=== PATIENT | female | born 1965 | race Two or more races ===

== ENCOUNTER 2019-09-08 14:50 | Emergency (ER) | payer SELFPAY ==
[~2019-09-08] VITALS: Ht 180.3 cm; Wt 81.2 kg
[2019-09-08] MEDS ORDERED: ASPirin 81 mg TAB PO ONE (15:15)
[2019-09-08 15:21] LABS: Basophils # (auto) 0.1 10 ^3/uL (0-0.2); Basophils % (auto) 0.7 % (0.0-2.0); Eosinophils # (auto) 0.1 10 ^3/uL (0-0.8); Eosinophils % (auto) 1.4 % (0.0-7.0); Hematocrit 43.8 % (36.0-46.0); Hemoglobin 14.8 g/dL (12.2-16.2); Lymphocytes # (auto) 2.6 10 ^3/uL (0.4-5.4); Lymphocytes % (auto) 33.7 % (10.0-50.0); Mean Corpuscular Hemoglobin 30.1 pg (28.0-32.0); Mean Corpuscular Hgb Conc. 33.9 g/dL (32.0-36.0); Mean Corpuscular Volume 88.8 fL (80.0-100.0); Monocytes # (auto) 0.5 10 ^3/uL (0-1.3); Monocytes % (auto) 6.7 % (0.0-12.0); Neutrophils # (auto) 4.4 10 ^3/uL (1.6-8.6); Neutrophils % (auto) 57.5 % (37.0-80.0); Nucleated Red Blood Cells % 0.2 %; Platelet Count (auto) 343 10^3/uL (140-450); Red Blood Cells 4.93 10^6/uL (4.0-5.20); Red Cell Distribution Width 13.1 % (11.8-14.3); White Blood Cell 7.7 10^3/uL (4.4-10.8)
[2019-09-08 15:38] LABS: Albumin 3.9 g/dL (3.4-5.0); Anion Gap 6 (5-15); Blood Urea Nitrogen 11 mg/dL (7-18); Calcium 8.7 mg/dL (8.5-10.1); Carbon Dioxide 26 mmol/L (21-32); Chloride 108 mmol/L (98-107); Glucose 96 mg/dL (74-106); Magnesium 2.7 mg/dL (1.6-2.6); Potassium 3.6 mmol/L (3.5-5.1); Sodium 140 mmol/L (136-145)
[2019-09-08 15:47] LABS: Alanine Aminotransferase 37 U/L (13-56); Alkaline Phosphatase 102 U/L (45-117); Aspartate Aminotransferase 18 U/L (15-37); BUN/Creatinine Ratio 13.8; Bilirubin, Total 0.5 mg/dL (0.2-1.0); GFR African American 96 mL/min; GFR Non-African American 80 mL/min; Total Protein 7.9 g/dL (6.4-8.2)
[2019-09-08 16:42] VITALS: BP 150/70
== END 2019-09-08 16:44 | disposition home or self-care (01) ==
LOC: ER 14:50
DX: R07.89 Other chest pain (principal); I10 Essential (primary) hypertension
CPT/HCPCS: 36415; 71046; 80053; 83735; 84484; 85025; 93005

== ENCOUNTER 2024-08-21 09:07 | Emergency (ER) | payer MEDICAID, OTHER ==
[~2024-08-21] VITALS: Ht 175.3 cm; Wt 97.0 kg
[2024-08-21 09:30] LABS: Urine Bacteria None Seen /hpf (None Seen)
--- NOTE | 2024-08-21 09:33 | ED.PDOC ---
HPI Comments 59 year old female presents to the ED with a chief complaint of chest pain onset 3 days. Patient states she has been experiencing chest pain, radiates to back, epigastric region, described as a burning sensation. Patient went to urgent care for symptoms, was sent to ED. PMHx HTN, HLD. Denies shortness of breath, dizziness, nausea, vomiting, diarrhea, headache, dysuria, hematuria. No other symptoms or modifying factors present at this time. Chief Complaint: Chest Pain Time Seen by MD: 09:13 Reviewed Notes: Medications, Allergies Allergies: Coded Allergies: NO KNOWN ALLERGIES (Unverified , 09/08/19) Information Source: Patient Mode of Arrival: Ambulatory Severity: Moderate Timing: Days Duration: Since onset Prehospital treatment: None Location: Chest (L) Radiation: Back Quality: Burning Onset: At Rest Cardiac Risk Factors: Hyperlipidemia, HTN PE Risk Factors: None History of: None Associated Signs and Symptoms: Abdominal Pain, Back Pain Past Medical History PAST MEDICAL HISTORY: High Lipids, HTN Surgical History (Other): cardiac ablasion, intesine surgery 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, Ovarian Cysts Family History Family History: Reviewed,noncontributory to illness, No family hx of Cancer Social History Smoker: Non-Smoker Alcohol: Denies ETOH Use Drugs: Denies Drug Use Lives In: Home Constitutional: denies: chills, diaphoresis, fatigue, fever, malaise, sweats, weakness, others EENTM: denies: blurred vision, double vision, ear bleeding, ear discharge, ear drainage, ear pain, ear ringing, eye pain, eye redness, hearing loss, mouth pain, mouth swelling, nasal discharge, nose bleeding, nose congestion, nose pain, photophobia, tearing, throat pain, throat swelling, voice changes, others Respiratory: denies: cough, hemoptysis, orthopnea, SOB at rest, shortness of breath, SOB with excertion, stridor, wheezing, others Cardiovascular: reports: chest pain; denies: dizzy spells, diaphoresis, Dyspnea on exertion, edema, irregular heart beat, left arm pain, lightheadedness, palpitations, PND, syncope, others Gastrointestinal: reports: abdominal pain; denies: abdomen distended, blood streaked bowels, constipated, diarrhea, dysphagia, difficulty swallowing, hematemesis, melena, nausea, poor appetite, poor fluid intake, rectal bleeding, rectal pain, vomiting, others Genitourinary: denies: abnormal vagina bleeding, burning, dyspareunia, dysuria, flank pain, frequency, hematuria, incontinence, pain, , vagina discharge, urgency, others Neurological: denies: dizziness, fainting, headache, left sided numbness, left sided weakness, numbness, paresthesia, pre-existing deficit, right sided numbness, right sided weakness, seizure, speech problems, tingling, tremors, weakness, others Musculoskeletal: reports: back pain; denies: gout, joint pain, joint swelling, muscle pain, muscle stiffness, neck pain, others Integumetry: denies: bruises, change in color, change in hair/nails, dryness, laceration, lesions, lumps, rash, wounds, others Allergic/Immunocompromised: denies: Difficulty Healing, Frequent Infections, Hives, Itching, others Hematologic/Lymphatic: denies: anemia, blood clots, easy bleeding, easy bruising, swollen glands, others Endocrine: denies: excessive hunger, excessive sweating, excessive thirst, excessive urination, flushing, intolerance to cold, intolerance to heat, unexplained weight gain, unexplained weight loss, others Psychiatric: denies: anxiety, bipolar disorder, depression, hopeless, panic disorder, schizophrenia, sleepless, suicidal, others All Other Systems: Reviewed and Negative Physical Exam General Appearance: Moderate Distress, Normal HEENT: Normal ENT Inspection, Pharynx Normal, TMs Normal Neck: Full Range of Motion, Non-Tender, Normal, Normal Inspection Respiratory: Chest Non-Tender, Lungs Clear, No Accessory Muscle Use, No Respiratory Distress, Normal Breath Sounds Cardiovascular: No Edema, No JVD, No Murmur, No Gallop, Normal Peripheral Pulses, Regular Rate/Rhythm Breast Exam: Deferred Gastrointestinal: No Organomegaly, Non Tender, No Pulsatile Mass, Normal Bowel Sounds, Soft Genitalia: Deferred Pelvic: Deferred Rectal: Deferred Extremities: No calf tenderness, Normal capillary refill, Normal inspection, Normal range of motion, Non-tender, No pedal edema Musculoskeletal : Apperance: Normal Neurologic: Alert, engine cleaner II-XII nml as Tested, No Motor Deficits, Normal Affect, Normal Mood, No Sensory Deficits Cerebellar Function: Normal Reflexes: Normal Skin: Dry, Normal Color, Warm Peripheral Pulses: 3+ Radial (R), 3+ Radial (L) Lymphatic: No Adenopathy EKG EKG : Pulse Rate (adult): 65 Cardiac Rhythm: NSR Was a procedure done? Was a procedure done?: No CP Differential Dx Differential Diagnosis: A-fib, A-Flutter, Angina, Anxiety / Panic Attack, Atrial Dysrhythmia, Electrolyte Disorder X-Ray, Labs, Meds, VS Vital Signs Date Time Temp Pulse Resp B/P (MAP) Pulse Ox O2 Delivery O2 Flow Rate FiO2 08/21/24 11:27 97.4 57 16 156/66 (96) 97 97.4 08/21/24 09:55 98.3 64 18 123/84 (97) 96 98.3 08/21/24 09:55 66 18 96 Room Air* 0 21 08/21/24 09:33 65 08/21/24 09:12 65 08/21/24 09:07 97.7 65 18 145/76 (99) 96 97.7 Lab Test 08/21/24 10:35 08/21/24 09:22 08/21/24 09:16 Range/Units Troponin I High Sensitivity < 3 L < 3 L </=34 ng/L Urine Color Light-yellow Yellow Urine Clarity Clear Clear Urine pH 7.5 5.0-9.0 Urine Specific Martin 1.021 1.001-1.035 Urine Protein Negative Negative Urine Ketones Negative Negative Urine Blood Trace H Negative /uL Urine Nitrite Negative Negative Urine Bilirubin Negative Negative Urine Urobilinogen Normal Negative mg/dL Urine Leukocyte Esterase Negative Negative /uL Urine RBC 7 0 - 4 /hpf Urine Microscopic WBC 1 0-5 /HPF Urine Squamous Epithelial Cells Few <5 /hpf Urine Bacteria None seen None Seen /hpf Urine Mucus Few None Seen Urine Glucose Normal Normal mg/dL Patient alert. Complaining of chest discomfort. EKG reviewed does not show any acute changes. Vitals stable. Answering questions. Ambulating. Not in distress. No sign of sepsis. No leg swelling. Reviewed her history. Explained to the patient. Continue cardiac monitoring. Was told to follow up with her primary care physician. Was told to come back if there is any problem. Time of 1ST Reevaluation: 09:43 Reevaluation 1ST: Unchanged Patient Education/Counseling: Diagnosis, Treatment, Prognosis Family Education/Counseling: No Family Present Departure 1 Departure Time of Disposition: 09:37 Impression: Primary Impression: Musculoskeletal chest pain Additional Impression: HTN (hypertension) Qualified Codes: I10 - Essential (primary) hypertension Disposition: 01 HOME / SELF CARE / HOMELESS Condition: Good Discharged With: Self Critical Care Note Critical Care Time?: No Stability Stability form required: No Heart Score Heart Score: Heart Score Response (Comments) Value History Slightly Suspicious 0 EKG Normal 0 Age 45-64 1 Risk Factors 1 or 2 risk factors 1 Troponin Normal limit 0 Total 2 I personally scribed for RONAK BELLO MD ([email or web address]) on 08/21/24 at 09:33. Electronically submitted by Lucy Hanson ([email or web address]). I personally scribed for RONAK BELLO MD ([email or web address]) on 08/21/24 at 11:45. Electronically submitted by Lucy Hanson ([email or web address]). RONAK BELLO MD August 21, 2024 09:33
[2024-08-21 09:40] LABS: Urine Blood TRACE /uL (Negative); Urine Clarity Clear (Clear); Urine Color Light-Yellow (Yellow); Urine Mucus FEW (None Seen); Urine Protein, UAD Negative (Negative); Urine Specific Gravity 1.021 (1.001-1.035); Urine Squamous Epithelial Cell FEW /hpf (<5); Urine Urobilinogen Normal (Negative); Urine WBC 1 /HPF (0-5); Urine pH 7.5 (5.0-9.0)
[2024-08-21 09:55] VITALS: PULSE 66; RESP 18; O2SAT 96
[2024-08-21 11:27] VITALS: BP 156/66; PULSE 57; RESP 16; TEMP 97.4; O2SAT 97
--- NOTE | 2024-08-22 08:59 | ECG ---
[facility] Test Date: 2024-08-21 Test Time: 09:12:12 Pat Name: LINDSEY PRATHER Department: ER Room: Gender: F Data Manager: OSMIN : 1965 Requested By: RONAK BELLO Order Number: [id number] Reading MD: Tyrel Norris Measurements Intervals [place] Rate: 65 P: 62 OH: 157 QRS: -12 QRSD: 95 T: 48 QT: 416 QTc: 433 Interpretive Statements Sinus rhythm Electronically Signed On 08-23-2024 12:45:09 PDT by Tyrel Norris Please click the below link to view image of tracing.
== END 2024-08-21 12:02 | disposition home or self-care (01) ==
LOC: ER 09:07
DX: R07.89 Other chest pain (principal); I10 Essential (primary) hypertension; E78.5 Hyperlipidemia, unspecified; Z85.43 Personal history of malignant neoplasm of ovary
CPT/HCPCS: 36415; 81001; 84484; 93005

== ENCOUNTER 2025-03-21 06:07 | Inpatient (IN) | payer MEDICAID ==
[~2025-03-21] VITALS: Ht 175.3 cm; Wt 105.7 kg
[~2025-03-21 06:07] MED LIST: ATOR10TA52 PO; CYAN-37 PO; IBUP-1453 PO; LIDO5PAD12 EX; NITR0.4S29 SL
[2025-03-21] MEDS: ceFAZolin 2 GM/D5W50ml 50 ML IV ONE (06:15)
[2025-03-21] MEDS: TRANEXAMIC ACID 20 ML ONE (06:34)
[2025-03-21] MEDS: CEFEPIME 1GM/50ML 50 ML IV ONE (06:35)
[2025-03-21] MEDS ORDERED: KETOROLAC TROMETH 30 MG/ML 1ML VIAL ONE (07:09)
[2025-03-21] MEDS ORDERED: fentaNYL CITRATE 100 MCG/2 ML VL ONE (07:09)
[2025-03-21] MEDS ORDERED: GLYCOPYRROLATE 0.2 MG/ML 1ML VIAL ONE (07:09)
[2025-03-21] MEDS ORDERED: BUPIVACAINE/DEXTROSE MPF 0.75% 2 ML AMP IT ONE (07:09)
[2025-03-21] MEDS ORDERED: KETAMINE 50mg/ML 1ml syringe ONE (07:09)
[2025-03-21] MEDS ORDERED: MIDAZOLAM HCL 2MG/2ML 2ml VIAL (1mg/ml) ONE (07:09)
[2025-03-21] MEDS ORDERED: ONDANSETRON HCL 4 MG/2 ML VIAL ONE (07:09)
[2025-03-21] MEDS ORDERED: PROPOFOL 10 MG/ML 20 ML IV ONE (07:09)
[2025-03-21] MEDS: VANCOMYCIN HCL 1000 MG VL ONE (09:05)
[2025-03-21 09:44] VITALS: PULSE 59; RESP 13; O2SAT 98
[2025-03-21] MEDS ORDERED: ACETAMINOPHEN 325 MG TAB PO PRN (09:45)
--- NOTE | 2025-03-21 09:47 | DVHOP2 ---
Operative Report - 2 Report Details Date: 03/21/25 Preop Diagnosis: Right knee degenerative arthritis Postop Diagnosis: Right knee degenerative arthritis Surgeon: Shira Adams MD [employer] Instructor: Tonja GATES Anesthesiologist: Jayro Anesthesia: Regional Drains: Patty closed wound suction Implant: enovis size eight femur PS, size seven tibial base plate, size 10 poly Consent: The patient was informed of the risks and benefits of the procedure. These include but are not limited to complications of anesthesia, postoperative infection, incomplete relief of symptoms, recurrence of symptoms, damage to blood vessels, nerves and tendons, deep venous thrombosis, pulmonary embolism and possible need for repeat surgery in the future. Complications: None Estimated Blood Loss: 75 cc Fluids: See anesthesia record Findings: Valgus deformity, osteophytes, denuded cartilage with eburnated bone, patella spared Indications for Surgery: Right knee degenerative arthritis with severe pain and functional impairment despite nonoperative management Name of Procedure Performed Right total knee arthroplasty Procedure Details Procedure Details: The patient was brought to the operating room and placed on the table in the supine position after being given spinal anesthetic with adequate analgesia obtained. Surgical timeout was performed verifying patient, laterality and procedure Preop patient received IV cefepime IV Ancef and IV tranexamic acid. Tourniquet was applied to the lower extremity. Lower extremity was prepped and draped in sterile fashion. Extremity was elevated, exsanguinated Esmarch, and tourniquet inflated. Midline incision was made followed by medial arthrotomy. I exposed the anterior medial and lateral tibial plateau and the anterior distal femur. Bovie and aqua mantis were used for hemostasis. I excised the anterior meniscal tissue with Bovie. I excised a portion of the fat pad with Bovie. The patella was everted and the knee flexed. I drilled the distal femur and suctioned the hole to reduce the risk of fat emboli. I inserted intramedullary guide with 5 degree valgus setting. I pinned the distal femoral cutting block anteriorly. Intramedullary bhupinder was removed. Distal femoral cut was made and the block removed. I brought my attention to the tibia setting up the external cutting jig for the tibia paying attention to slope, rotation and varus valgus alignment. I set the depth and pinned the block. I used the external alignment bhupinder to aid in checking alignment. Bone cut was made and bone removed releasing soft tissue attachments with Bovie. Cutting block removed. I then checked the extension gap and deemed adequate and removed the femur and tibia pins. I flexed the knee and applied the femoral sizing guide to the femur. I checked the size and external rotation setting at 90 degrees to Whites[place] line and checking the epicondylar axis. I drilled the holes then removed the sizing guide and pin. I then tapped on the 4 in 1 cutting block and checked with the maurice wing anteriorly to make sure that I would not notch then pinned the block. Cuts were made and the block and pins were removed. Bone was removed with curved osteotome. I used a rongeur to remove any remaining osteophytes at the femur and tibia. I then used a lamina creative services specialist to open up the back alternating between the medial and lateral side. Any remaining meniscal tissue was excised with scalpel. I used curved osteotome, curette and rongeur to remove any posterior osteophytes. I prophylactically coagulated with aqua mantis. I then tapped on the template for the box cut and pinned it. Box cut was made and bone removed. Template and pin removed. I then tapped on the femoral trial. I then brought my attention back to the tibia sizing it. I used the external alignment bhupinder to make sure that rotation and alignment were good. I made a Bovie kaci at the tibial tray kaci identifying rotation for later use. I tried various tibial polytrials. The patella tracked nicely without thumb pressure. I removed the trials. I pinned the tray and used the reamer and keel punch. The implants were brought into the field while bone p reparation was started. I used both normal saline irrigation and the CarboJet to prepare the bone. I used the bone from the cuts to graft the femoral tunnel. Once cement was ready I applied cement to the tibial implant and tibial bone tapped it on and removed excess cement in usual fashion. In similar fashion I tapped on the femoral implant. I inserted the trial polyethylene and brought the knee into 30 degrees flexion. I irrigated with basisurge irrigant. Once cement cured, I checked stability and range of motion as well as patella tracking. tourniquet was released and hemostasis maintained with aqua mantis. I inserted the polyethylene and again checked stability. I used a 2 grams of vancomycin half of which was placed deep and half superficial. I repaired the extensor mechanism with the knee in flexion with #1 Ethibond interrupted [id number]. Deep subcutaneous tissue was closed with 0 Vicryl. Superficial subcutaneous tissue was closed with 2-0 vicryl interrupted. Skin was closed with wally. I then applied the patty closed wound dressing. Patient tolerated the procedure well and was brought to recovery room in stable condition. Condition Stable Disposition Still a Patient SHIRA ADAMS MD Mar 21, 2025 09:47
[2025-03-21 09:54] VITALS: PULSE 55; RESP 13; O2SAT 100
[2025-03-21] MEDS: ACETAMINOPHEN IV 100 ML IV ONE (09:57)
[2025-03-21] MEDS: ACETAMINOPHEN IV 1000 MG/100ML (10MG/ML) IV ONE (10:00)
[2025-03-21] MEDS: CYCLOBENZAPRINE HCL 10 MG TAB PO ONE (10:39)
--- NOTE | 2025-03-21 10:57 | DVH ---
CLINICAL INDICATION: postop TECHNIQUE: 1 radiographic views of the right knee were obtained. COMPARISON: None FINDINGS/IMPRESSION: Postop changes of a right knee arthroplasty is noted with subcutaneous air and skin closure wally in the midline. There is no lateral film of the knee to evaluate patella.
[2025-03-21] MEDS: D5W/LACTATED RINGERS 1,000 ML IV SCH (12:00)
[2025-03-21] MEDS: ACETAMINOPHEN 325 MG TAB PO SCH (12:00)
[2025-03-21] MEDS: HYDROmorphone HCL 2 MG/ML VL/or syr IV PRN (12:18)
[2025-03-21] MEDS: HYDROmorphone HCL 2 MG/ML VL/or syr ONE (12:31)
[2025-03-21] MEDS: KETOROLAC TROMETH 30 MG/ML 1ML VIAL IV SCH (12:50)
[2025-03-21] MEDS ORDERED: ceFAZolin 2 GM/D5W50ml 50 ML IV SCH (14:00)
[2025-03-21] MEDS ORDERED: ROPIVACAINE 0.5% (5MG/ML) 20ML AMPULE IJ ONE (14:10)
[2025-03-21] MEDS ORDERED: HYDROCORTISONE SOD SUCC 100 MG/2ML INJ VIAL ONE (14:14)
[2025-03-21] MEDS ORDERED: LACTATED RINGER'S 500 ML IV ONE (14:15)
--- NOTE | 2025-03-21 14:47 | DVHNC2 ---
Procedure - Right adductor canal block performed for post-operative pain after right total knee arthroplasty. Informed consent obtained. Ultrasound examination of the anatomy of the thigh performed. Sterile prep and drape. Time out done. Skin infiltrated with 2% lido. 4" 20G needle placed with ultrasound guidance. 20cc 0.5% ropivacaine incrementally injected with multiple negative aspirations. No paresthesias. Patient reports pain relief. Will follow as needed. MEKA PERALTA MD Mar 21, 2025 14:47
[2025-03-21 15:23] VITALS: BP 138/67; PULSE 68; RESP 20; TEMP 97.7; O2SAT 94
[2025-03-21] MEDS: ceFAZolin 2 GM/D5W50ml 50 ML IV SCH (16:02)
[2025-03-21 20:00] VITALS: RESP 18
[2025-03-21 21:00] VITALS: BP 137/72; PULSE 73; RESP 19; TEMP 97.7; O2SAT 95
[2025-03-21] MEDS: PREGABALIN 25 MG CAP PO SCH (21:54)
[2025-03-22 01:00] VITALS: BP 137/78; PULSE 83; RESP 19; TEMP 98.3; O2SAT 92
[2025-03-22 05:00] VITALS: BP 139/79; PULSE 89; RESP 19; TEMP 98.7; O2SAT 93
[2025-03-22 07:43] LABS: Hematocrit 38.1 % (36.0-46.0); Hemoglobin 12.9 g/dL (12.2-16.2); Mean Corpuscular Hemoglobin 29.7 pg (28.0-32.0); Mean Corpuscular Volume 87.2 fL (80.0-100.0); Nucleated Red Blood Cells % 0.0 %
[2025-03-22 07:50] LABS: Chloride 101 mmol/L (98-107); Sodium 140 mmol/L (136-145)
[2025-03-22 07:51] LABS: Anion Gap 13 (5-15); Carbon Dioxide 26 mmol/L (20-31)
[2025-03-22 07:54] LABS: Calcium 8.6 mg/dL (8.7-10.4); Potassium 3.3 mmol/L (3.5-5.1)
[2025-03-22 07:56] LABS: BUN/Creatinine Ratio 7.5 (10.0-20.0)
[2025-03-22 07:57] LABS: Blood Urea Nitrogen 6 mg/dL (9-23); Glucose 129 mg/dL (74-106)
[2025-03-22 09:00] VITALS: BP 142/82; PULSE 82; RESP 18; TEMP 100; O2SAT 96
[2025-03-22 12:33] VITALS: BP 159/75; PULSE 87; RESP 20; TEMP 98.5; O2SAT 98
[2025-03-22] MEDS: HYDROmorphone HCL 2 MG/ML VL/or syr IV PRN (14:06)
--- NOTE | 2025-03-22 15:10 | DVHPN2 ---
Progress Note - Dictate Date Seen: Mar 22, 2025 Medical Necessity Reason Pt with a Central, PICC or Fol: No Subjective Patient was lying comfortably in bed during my evaluation reports some postoperative knee pain that is only somewhat improved with the help of pain medication. Patient reports that she tried getting up and walking yesterday but was only able to take a few steps at bedside and tried walking earlier today but was only able to take a few steps outside of her door and back to her bed due to the pain. Patient was otherwise feeling well denying any other complaints during my evaluation. vital signs Vital Sign Date Time Temp Pulse Resp B/P (MAP) Pulse Ox O2 Delivery O2 Flow Rate FiO2 03/22/25 14:06 87 20 159/75 03/22/25 12:33 98.5 98 98.5 03/22/25 08:10 Room Air* 0 21 Total Intake and Output 03/21/25 03/21/25 03/22/25 15:00 23:00 07:00 Intake Total 150 ml 100 ml Balance 150 ml 100 ml medications Current Medications Medications Dose Ordered Sig/May Route Start Time Stop Time Status Last Admin Dose Admin Dextrose/Lactated Ringer's 1,000 ml @ 100 mls/hr Q10H IV 03/21/25 09:45 03/22/25 05:33 100 MLS/HR Acetaminophen 650 mg Q4HP PRN PO 03/21/25 09:45 Acetaminophen 650 mg Q6HR PO 03/21/25 12:00 03/22/25 11:50 650 MG Ketorolac Tromethamine 15 mg Q6HR IV 03/21/25 12:00 03/26/25 11:59 03/22/25 11:49 15 MG Pregabalin 50 mg BID PO 03/21/25 10:00 03/22/25 09:11 50 MG Oxycodone HCl 5 mg Q4HP PRN PO 03/21/25 09:45 03/22/25 09:12 5 MG Aspirin 81 mg BID PO 03/22/25 10:00 03/22/25 09:11 81 MG Hydromorphone HCl 0.5 mg Q3HPRN PRN IV 03/22/25 13:00 03/22/25 14:06 0.5 MG objective A&O x4 in no acute distress Knee range of motion grossly limited with pain on movement Ana dressing clean, dry, intact, and maintaining suction No distal edema or calf tenderness to palpation Neurovascularly intact with cap refill less than 2 seconds laboratory and microbiology Laboratory Tests 03/22/25 06:25 Test 03/22/25 06:25 Range/Units Serum Glucose 129 H 74-106 mg/dL Assessment/Plan We will continue monitoring patient and observe as well as continue with pain control and we will continue to have patient remain weight-bearing as tolerated with the assistance of a walker and to continue walking with physical therapy and we will reconvene with the patient tomorrow morning for re-evaluation and potential discharge home. Patient understood and agreed. Plan discussed with: Patient MICKEY DOBBS Mar 22, 2025 15:10
[2025-03-22 17:23] VITALS: BP 176/88; PULSE 83; RESP 16; TEMP 99; O2SAT 98
[2025-03-22 21:00] VITALS: BP 146/75; PULSE 74; RESP 16; TEMP 98.6; O2SAT 94
[2025-03-23 01:00] VITALS: BP 148/83; PULSE 75; RESP 16; TEMP 98.1; O2SAT 98
[2025-03-23 05:00] VITALS: BP 126/69; PULSE 85; RESP 15; TEMP 98; O2SAT 95
--- NOTE | 2025-03-23 07:30 | DVHPN2 ---
Progress Note - Dictate Date Seen: Mar 23, 2025 Medical Necessity Reason Pt with a Central, PICC or Fol: No Subjective Patient was lying comfortably in bed during my evaluation reports some postoperative knee pain that is more improved today with the help of pain medication than yesterday. Patient reports that she was able to get up and walk with the help of physical therapy and her walker yesterday and was able to get a few steps outside were morgan and back to her room but feels a lot better today and is ready to get up and walk. Patient is otherwise feeling well denying any other complaints or concerns during my evaluation. vital signs Vital Sign Date Time Temp Pulse Resp B/P (MAP) Pulse Ox O2 Delivery O2 Flow Rate FiO2 03/23/25 05:00 98.0 85 15 126/69 (88) 95 98.0 03/22/25 20:00 Room Air* 0 21 Total Intake and Output 03/22/25 03/22/25 03/23/25 15:00 23:00 07:00 Intake Total 1750 ml 1025 ml Output Total 1150 ml Balance 1750 ml -125 ml medications Current Medications Medications Dose Ordered Sig/Amy Route Start Time Stop Time Status Last Admin Dose Admin Dextrose/Lactated Ringer's 1,000 ml @ 100 mls/hr Q10H IV 03/21/25 09:45 03/22/25 17:42 100 MLS/HR Acetaminophen 650 mg Q4HP PRN PO 03/21/25 09:45 Acetaminophen 650 mg Q6HR PO 03/21/25 12:00 03/23/25 05:38 650 MG Ketorolac Tromethamine 15 mg Q6HR IV 03/21/25 12:00 03/26/25 11:59 03/23/25 05:35 15 MG Pregabalin 50 mg BID PO 03/21/25 10:00 03/22/25 21:30 50 MG Oxycodone HCl 5 mg Q4HP PRN PO 03/21/25 09:45 03/22/25 16:43 5 MG Aspirin 81 mg BID PO 03/22/25 10:00 03/22/25 21:30 81 MG Hydromorphone HCl 0.5 mg Q3HPRN PRN IV 03/22/25 13:00 03/22/25 14:06 0.5 MG objective A&O x4 in no acute distress Knee range of motion grossly limited with pain on movement Ana dressing clean, dry, intact, and maintaining suction No distal edema or calf tenderness to palpation Neurovascularly intact with cap refill less than 2 seconds laboratory and microbiology Laboratory Tests 03/22/25 06:25 Test 03/22/25 06:25 Range/Units Serum Glucose 129 H 74-106 mg/dL Assessment/Plan Patient to be discharged home this afternoon after walking physical therapy twice and advised the patient to remain weight-bearing as tolerated with the assistance of a walker. I also advised the patient to maintain her dressings clean, dry, intact, and amputation suction and to follow up with our office in 10-14 days for her 1st postoperative evaluation. I advised the patient to call our office if she has any further questions or concerns. Rx sent via our outpatient EMR system. Patient understood and agreed. Plan discussed with: Patient MICKEY DOBBS Mar 23, 2025 07:30
--- NOTE | 2025-03-23 07:32 | DVHDS2 ---
Discharge Summary Date of Admission Mar 21, 2025 at 09:34 Date of Discharge: Mar 23, 2025 Labs/Diagnostic Data: Laboratory Results Test 03/22/25 06:25 White Blood Count 11.7 10^3/uL (4.4-10.8) Red Blood Count 4.36 10^6/uL (4.0-5.20) Hemoglobin 12.9 g/dL (12.2-16.2) Hematocrit 38.1 % (36.0-46.0) Mean Corpuscular Volume 87.2 fL (80.0-100.0) Mean Corpuscular Hemoglobin 29.7 pg (28.0-32.0) Mean Corpuscular Hemoglobin Concent 34.0 g/dL (32.0-36.0) Red Cell Distribution Width 13.7 % (11.8-14.3) Platelet Count 301 10^3/uL (140-450) Mean Platelet Volume 8.0 fL (6.9-10.8) Neutrophils (%) (Auto) 73.0 % (37.0-80.0) Lymphocytes (%) (Auto) 16.1 % (10.0-50.0) Monocytes (%) (Auto) 10.3 % (0.0-12.0) Eosinophils (%) (Auto) 0.2 % (0.0-7.0) Basophils (%) (Auto) 0.4 % (0.0-2.0) Neutrophils # (Auto) 8.5 10 ^3/uL (1.6-8.6) Lymphocytes # (Auto) 1.9 10 ^3/uL (0.4-5.4) Monocytes # (Auto) 1.2 10 ^3/uL (0-1.3) Eosinophils # (Auto) 0 10 ^3/uL (0-0.8) Basophils # (Auto) 0 10 ^3/uL (0-0.2) Nucleated Red Blood Cells 0.0 % Sodium Level 140 mmol/L (136-145) Potassium Level 3.3 mmol/L (3.5-5.1) Chloride Level 101 mmol/L (98-107) Carbon Dioxide Level 26 mmol/L (20-31) Anion Gap 13 (5-15) Blood Urea Nitrogen 6 mg/dL (9-23) Creatinine 0.80 mg/dL (0.550-1.02) Glomerular Filtration Rate Calc 85 mL/min (>90) BUN/Creatinine Ratio 7.5 (10.0-20.0) Serum Glucose 129 mg/dL (74-106) Calcium Level 8.6 mg/dL (8.7-10.4) Other Laboratory Tests 03/22/25 06:25 Brief Hx & Hospital Course: Patient is brought to the hospital on Wednesday to undergo a right total knee arthroplasty. She tolerated the procedure well without complications and was kept overnight for postoperative observation. Patient has remained medically stable denying any overnight events but reports that she was having difficulty ambulating due to the pain and was kept an extra night to control her pain better and this morning patient reports feeling a lot better and is ready to get up and walk with the help of physical therapy and her walker. We will discharge the patient home this afternoon after walking with physical therapy twice and advised the patient to remain weight-bearing as tolerated with the assistance of a walker and to follow up with our office in 10-14 days for her 1st postoperative evaluation. Condition at Discharge: Stable Final Diagnosis/Problems List Right knee degenerative arthritis Discharge Disposition: Home Discharge Instruct/Medications Diet: Regular Activity: See Comment Activity comment: Patient to remain weight-bearing as tolerated with the assistance of a walker Follow Up/Referral: Patient to follow up with our office in 10-14 days for her 1st postoperative evaluation. Medications: Rx sent via our outpatient EMR system Scheduled Atorvastatin Calcium (Atorvastatin Calcium), Unknown Dose PO DAILY, (Reported) Ibuprofen (Ibuprofen), Unknown Dose PO TID, (Reported) Miscellaneous Medications Cyanocobalamin (B12), Unknown Dose PO, (Reported) Lidocaine (Lidocaine Patch 5%), Unknown Dose EX, (Reported) Nitroglycerin (Nitrostat), 0.4 MG SL, (Reported) Discharge Statement: "Patient was advised to return to the ER or call 911 if any headaches, dizziness, shortness of breath, chest pain, abdominal pain, bleeding, fevers, or worsening of medical condition. Patient was counseled about treatment plan, medications, possible side effects, patientverbalized understanding. All questions were answered to the best of my ability. This discharge took greater then 30 minutes in planning, reviewing documentation, counseling the patient, and discussing with other team members." ASSESSMENT ASSESSMENT Assessment Right knee degenerative arthritis MICKEY DOBBS Mar 23, 2025 07:31
[2025-03-23 08:25] VITALS: TEMP 36.7
[2025-03-23 09:26] VITALS: BP 132/74; PULSE 86; RESP 18
== END 2025-03-23 13:05 | disposition home or self-care (01) | DRG 326 ==
LOC: SUR 06:07 → OVERFLOW 09:34 → WEST WING 15:39
PROVIDERS: ADMIT Internal Medicine; ATTEND Internal Medicine
PROC: 3E0T3BZ Introduction of Anesthetic Agent into Peripheral Nerves and Plexi, Percutaneous Approach (ICD-10-PCS; 2025-03-21)
PROC: 0SRC0J9 Replacement of Right Knee Joint with Synthetic Substitute, Cemented, Open Approach (ICD-10-PCS; principal; 2025-03-21 07:23)
DX: M17.11 Unilateral primary osteoarthritis, right knee (principal)
CPT/HCPCS: 36415; 73560; 80048; 85025; 97110; 97116; 97163; 97530; G0378; J0131; J1885; J2250; J2405; J2704